=== PATIENT | female | born 1975 | race Caucasian/White ===

== ENCOUNTER → 2016-11-03 | Outpatient (CLI) | payer OTHER ==
--- NOTE | 2016-11-03 13:07 | REP ---
RENAL NUCLEAR SCAN WITH FLOW AND FUNCTION: Following the intravenous administration of 8.7 mCi of technetium MAG-3, immediate flow images are obtained in the posterior projection showing somewhat greater degree of perfusion of left kidney compared to the right. Delayed renal function images are performed every minute for a period of 30 minutes in the posterior projection. There is bilateral cortical uptake and washout, with bilateral excretion and no evidence of urinary tract obstruction. Split function is 58.1% on the left and 41.9% on the right. Time to peak is 2 minutes bilaterally, normal. T1/2 is normal bilaterally, 5.5 minutes on the left and 6.1 minutes on the right. Renal function curves are normal in their downward slopes. There is very mild post void residual in the urinary bladder. IMPRESSION: Greater degree of split function on the left compared to the right. Otherwise essentially normal renal function bilaterally. No evidence of urinary tract obstruction. Signed by Darius Tim MD 11/04/2016 08:40 A
== END ==
LOC: M RAD 11:25
PROVIDERS: ATTEND Internal Medicine Nephrology
DX: N13.39 Other hydronephrosis (principal)
CPT/HCPCS: 78707; A9562

== ENCOUNTER → 2016-12-31 | Outpatient (CLI) | payer OTHER ==
--- NOTE | 2016-12-31 09:16 | REPMRS ---
Patient History No known family history of cancer. Reductions of both breasts, 2006. Digital Mammo Screening Bilat: December 31, 2016 - Exam #: [id number] Bilateral CC and MLO view(s) were taken. Technologist: Luciana Rob Technologist Prior study comparison: May 04, 2015, digital bilateral screening mammo, performed at [facility]. 2014, digital bilateral screening mammo, performed at [facility]. January 09, 2014, digital bilateral screening mammo, performed at [facility]. September 06, 2009, right breast diagnostic unilateral mammo, performed at [facility]. FINDINGS: There are scattered fibroglandular densities. There are areas of postoperative fat necrosis in the right breast anteriorly unchanged from multiple prior studies with some stable contour deformity. There has been no change in the appearance of the mammogram from the prior studies. There is a mild amount of scattered fibroglandular density which is fairly symmetric. There is no interval development of dominant mass, architectural distortion, or clustered microcalcification suggestive of malignancy. ASSESSMENT: BI-RADS/ACR category 2 mammogram. Benign finding(s). Recommendation Routine screening mammogram in 1 year (for women over age 40). This mammogram was interpreted with the aid of an FDA-approved computer-aided dectection system. Electronically Signed By: Bishnu Woodruff MD 12/31/16 0916
== END ==
LOC: M RAD 08:24
PROVIDERS: ATTEND Physician Assistant Medical
DX: Z12.31 Encounter for screening mammogram for malignant neoplasm of breast (principal)

== ENCOUNTER → 2017-04-20 | Outpatient (CLI) | payer OTHER | LOC: M LRY 13:44 | DX: M25.761 Osteophyte, right knee (principal) | CPT/HCPCS: 73564; G0463 ==

== ENCOUNTER 2018-01-21 16:14 | Emergency (ER) | payer OTHER ==
[2018-01-21] MEDS: NS 1,000 ML IV (17:15)
[2018-01-21 17:38] LABS: BASO % 0.2 % (0.0-1.0); EOS # 0.1 10^3/uL (0.0-0.50); EOS % 0.9 % (0.0-3.0); IMMATURE GRANULOCYTE % 0.2 % (0-3.0); LYMPH # 1.7 10^3/uL (1.5-4.5); LYMPH % 19.1 % (24.0-44.0); MEAN CORPUSCULAR HEMOGLOBIN 29.7 pg (27.0-33.0); MEAN CORPUSCULAR HGB CONC 34.1 g/dl (32.0-36.5); MEAN CORPUSCULAR VOLUME 86.9 fl (80.0-96.0); MONO # 0.6 10^3/uL (0.0-0.8); MONO % 7.2 % (0.0-5.0); NEUTROPHILS # 6.4 10^3/uL (1.8-7.7); NEUTROPHILS % 72.4 % (36.0-66.0); PLATELET COUNT, AUTOMATED 187 10^3/uL (150-450); RED BLOOD COUNT 4.72 10^6/uL (4.00-5.40); RED CELL DISTRIBUTION WIDTH 12.9 % (11.5-14.5); WHITE BLOOD COUNT 8.9 10^3/uL (4.0-10.0)
[2018-01-21 17:57] LABS: ANION GAP 9 MEQ/L (8-16); BLOOD UREA NITROGEN 16 MG/DL (7-18); CALCIUM LEVEL 8.8 MG/DL (8.5-10.1); CARBON DIOXIDE LEVEL 30 MEQ/L (21-32); CHLORIDE LEVEL 101 MEQ/L (98-107); CREATININE FOR GFR 0.94 MG/DL (0.55-1.30); GLOMERULAR FILTRATION RATE > 60.0 (>58); GLUCOSE, FASTING 80 MG/DL (70-100); SODIUM LEVEL 140 MEQ/L (136-145)
[2018-01-21 18:00] LABS: CONTROL LINE HCG INT CTR LINE PRESENT; HCG, SERUM QUALITATIVE NEGATIVE (NEGATIVE)
[2018-01-21 18:10] LABS: KETONE, URINE AUTO RFX NEGATIVE (NEGATIVE); LEUKOCYTE ESTERASE UR AUTO RFX NEGATIVE (NEGATIVE); MUCUS, URINE RFX SMALL (NEGATIVE); NITRITE, URINE AUTO RFX NEGATIVE (NEGATIVE); RBC, URINE AUTO RFX TNTC /HPF (0-3); SPECIFIC GRAVITY UR AUTO RFX 1.008 (1.002-1.035); SQUAM EPITHELIAL CELL UR AURFX 1 /HPF (0-6)
[2018-01-21 18:55] LABS: WBC, URINE AUTO RFX 16 /HPF (0-3)
== END 2018-01-21 18:58 | disposition home or self-care (01) ==
LOC: M ED 16:14
DX: K64.4 Residual hemorrhoidal skin tags (principal); I10 Essential (primary) hypertension; N28.9 Disorder of kidney and ureter, unspecified; M48.00 Spinal stenosis, site unspecified; Z79.899 Other long term (current) drug therapy
CPT/HCPCS: 84703

== ENCOUNTER → 2018-11-23 | Outpatient (CLI) | payer OTHER ==
[~2018-11-23] MED LIST: ANUS2.5C2 TOP; LISI10TA4 PO; MOBI15TA PO
--- NOTE | 2018-11-23 18:08 | REP ---
RIGHT FOOT COMPLETE: 11/23/2018. Clinical history: Pain. Findings: No prior study. There is dorsal spurring at the TMT joints on the lateral view. Small plantar calcaneal spur. Subtalar joints intact. Talonavicular and calcaneocuboid joints are normal. The tarsal bones and metatarsals are intact. Phalanges without fracture or focal lesion. There are minor degenerative change at the first MTP joint. There is a spur at the dorsal aspect of the talus. This is non-articular. Impression: 1. 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 No fracture or avulsion. Electronically Signed by José Miguel Carter MD 11/23/2018 07:46 P
== END ==
LOC: M LRY 17:27
PROVIDERS: ATTEND Physician Assistant
DX: S99.921A Unspecified injury of right foot, initial encounter (principal); X58.XXXA Exposure to other specified factors, initial encounter; Y92.89 Other specified places as the place of occurrence of the external cause
CPT/HCPCS: 73630; G0463

== ENCOUNTER → 2020-10-09 | Outpatient (REF) | payer OTHER ==
[~2020-10-09] MED LIST changes: +LISI10TA22 PO; -LISI10TA4 PO
== END ==
LOC: M LAB REF 17:03
PROVIDERS: ATTEND Internal Medicine Nephrology
DX: E83.42 Hypomagnesemia (principal)

== ENCOUNTER → 2021-10-09 | Outpatient (REF) | payer OTHER ==
[2021-10-09 19:27] LABS: ALBUMIN 3.7 GM/DL (3.2-5.2); BLOOD UREA NITROGEN 11 MG/DL (7-18); CALCIUM LEVEL 9.2 MG/DL (8.5-10.1); CARBON DIOXIDE LEVEL 28 MEQ/L (21-32); CHLORIDE LEVEL 102 MEQ/L (98-107); CREATININE FOR GFR 0.98 MG/DL (0.55-1.30); GLOMERULAR FILTRATION RATE > 60.0 (>58); GLUCOSE, FASTING 115 MG/DL (70-100); MAGNESIUM LEVEL 2.1 MG/DL (1.8-2.4); PHOSPHORUS LEVEL 2.9 MG/DL (2.5-4.9); POTASSIUM SERUM 3.4 MEQ/L (3.5-5.1); SODIUM LEVEL 138 MEQ/L (136-145)
== END ==
LOC: M LAB REF 16:50
PROVIDERS: ATTEND Nurse Practitioner Family
DX: N18.2 Chronic kidney disease, stage 2 (mild) (principal); E83.42 Hypomagnesemia

== ENCOUNTER → 2024-03-27 | Outpatient (REF) | payer OTHER | LOC: M LAB REF 17:26 | PROVIDERS: ATTEND Physician Assistant Medical | DX: R05.9 Cough, unspecified (principal) ==